=== PATIENT | male | born 1995 | race Two or more races ===

== ENCOUNTER 2020-10-18 17:21 | Emergency (ER) | payer MEDICAID, OTHER ==
[~2020-10-18] VITALS: Ht 154.9 cm; Wt 126.1 kg
[2020-10-18 17:22] VITALS: BP 124/86
== END 2020-10-18 19:13 | disposition left against medical advice (07) ==
LOC: ER 17:25
DX: T24.012A Burn of unspecified degree of left thigh, initial encounter (principal); Z53.21 Procedure and treatment not carried out due to patient leaving prior to being seen by health care provider; X08.8XXA Exposure to other specified smoke, fire and flames, initial encounter; Y93.89 Activity, other specified; Y92.89 Other specified places as the place of occurrence of the external cause; Y99.8 Other external cause status

== ENCOUNTER 2022-05-22 06:06 | Emergency (ER) | payer MEDICAID ==
[~2022-05-22] VITALS: Ht 182.9 cm; Wt 136.7 kg
[2022-05-22 07:07] VITALS: BP 128/67
[2022-05-22] MEDS ORDERED: KETOROLAC TROMETH 60MG/2ML VIAL IM ONE (07:15)
[2022-05-22] MEDS ORDERED: METH750T22 PO (07:26)
[2022-05-22] MEDS ORDERED: IBUP800T27 PO (07:26)
== END 2022-05-22 07:31 | disposition home or self-care (01) ==
LOC: ER 06:06
DX: M54.41 Lumbago with sciatica, right side (principal); J45.909 Unspecified asthma, uncomplicated; X50.1XXA Overexertion from prolonged static or awkward postures, initial encounter; Y93.01 Activity, walking, marching and hiking; Y92.89 Other specified places as the place of occurrence of the external cause; Y99.8 Other external cause status
CPT/HCPCS: 96372; 99283; J1885